=== PATIENT | female | born 1995 | race African-American/Black ===

== ENCOUNTER 2024-10-10 19:41 | Emergency (ER) | payer MEDICAID ==
[~2024-10-10] VITALS: Ht 172.7 cm; Wt 104.1 kg
[2024-10-10 20:00] VITALS: O2SAT 98
[2024-10-10 20:26] VITALS: TEMP 36.83628; O2SAT 98
[2024-10-10 23:14] VITALS: BP 138/93; PULSE 101; RESP 16
[2024-10-10] MEDS: DEXAMETHASONE 4MG TABLET PO ONE (23:14)
[2024-10-10] MEDS: IBUPROFEN 600MG TABLET PO ONE (23:14)
[2024-10-11] MEDS ORDERED: AMOX-494 MT (00:55)
[2024-10-11] MEDS ORDERED: NAPR-681 MT (00:55)
== END 2024-10-11 01:03 | disposition home or self-care (01) ==
LOC: ER 19:41
DX: J02.0 Streptococcal pharyngitis (principal); Z79.1 Long term (current) use of non-steroidal anti-inflammatories (NSAID)
CPT/HCPCS: 99283; 87430; J8540